=== PATIENT | male | born 1965 | race Caucasian/White ===

== ENCOUNTER 2024-06-27 08:57 | Emergency (ER) | payer MEDICAID ==
[~2024-06-27] VITALS: Ht 167.6 cm; Wt 70.0 kg
[2024-06-27 09:02] VITALS: TEMP 37.1
[2024-06-27 09:04] VITALS: BP 137/86; O2SAT 98
[2024-06-27 09:26] VITALS: PULSE 77; RESP 18; O2SAT 100
[2024-06-27] MEDS ORDERED: IBUP-2030 MT (09:46)
== END 2024-06-27 10:00 | disposition home or self-care (01) ==
LOC: ER 08:57
DX: S43.101A Unspecified dislocation of right acromioclavicular joint, initial encounter (principal); W19.XXXA Unspecified fall, initial encounter; Y93.66 Activity, soccer; Y92.89 Other specified places as the place of occurrence of the external cause; Y99.8 Other external cause status
CPT/HCPCS: 73030; 99283; A4565